=== PATIENT | male | born 1960 | race Caucasian/White ===

== ENCOUNTER 2018-08-17 06:13 | Day surgery (SDC) | payer BC, SELFPAY ==
[2018-08-17] VITALS (8 sets, daily range): BP systolic 95–135; BP diastolic 56–84; PULSE 58–77; RESP 14–21; TEMP 35.2–36.7; O2SAT 95–97
[2018-08-17] MEDS: Lactated Ringers 1,000 ML 80 ML IV ×2 (06:25→10:33)
--- NOTE | 2018-08-17 06:59 | W.PM.HP.N ---
Date of service: 08/17/18 Time of Service: 06:59 Assessment and Plan (1) Bilateral inguinal hernia: Current visit: No Status: Acute A\\ Bilateral inguinal hernias. Left > right P\\ Bilateral laparoscopic inguinal hernia repairs with mesh Risks, benefits and complications have been reviewed. Complications include but are not limited to bleeding, infection, injury to vas, vessels and nerves, injury to bowel and adverse reaction to medications. Questions were entertained and answered to their satisfaction and they wished to proceed. Qualifiers: Obstruction and gangrene presence: without obstruction or gangrene Recurrence: non-recurrent Qualified Code(s): K40.20 - Bilateral inguinal hernia, without obstruction or gangrene, not specified as recurrent History of Present Illness Narrative: Mr. Gomez is a pleasant 58-year-old gentleman who is back in the office because in the spring time he felt some gurgling in the left inguinal area. He did not want to have surgery done in the summer as he likes to ride his motorcycle. Over time he noted the hernia grew in size from pea-sized to more golf sized. He now has to push it in for 5 times a day. He denies any changes in his bowel habits. He denies any nausea or vomiting. He is an otherwise healthy gentleman. He just had his heart checked out because his younger brother ended up needing a triple-vessel bypass. He tells me that his workup was negative for any disease. He is quite active and has never had any chest pain. Review of Systems Constitutional Denies fever(s) Cardiovascular Denies chest pain, Denies chest pain at rest, Denies rapid heart rate, Denies irregular heart rhythm, Denies dyspnea and Denies dyspnea on exertion Respiratory Denies dyspnea and Denies dyspnea on exertion [facility] Medical History Bilateral inguinal hernia (Acute) Hyperlipidemia (Chronic) Diverticulosis (Acute) Obesity (Chronic) Irritability (Chronic) Exertional dyspnea (Chronic) Intermittent palpitations (Chronic) PVCs (premature ventricular contractions) (Chronic) Corneal abrasion (Acute) Asthma Surgical History Colonoscopy - MAC (04/19/16) Shoulder Manipulation (06/19/13) Family History Brother Heart disease Father Heart disease Social History Smoking/Tobacco Use Status: Former Tobacco Use Meds Home Medications Medication Instructions Recorded Confirmed Type acetaminophen [Tylenol] 325 mg PO Q4H PRN #2 tab-cap 05/30/13 08/17/18 History ibuprofen 200 mg PO Q6H PRN #2 tab-cap 05/30/13 08/17/18 History ProAir HFA 2 puff INHALATION PRN PRN 06/12/13 08/15/18 History simvastatin 40 mg tablet 40 mg PO QPM 07/04/18 08/15/18 History [id number]-zuz-[id number]-vit K-lycop 1 tab PO DAILY 08/15/18 08/15/18 History [Men's Multivitamin] Allergies Allergy/AdvReac Type Severity Reaction Status Date / Time No Known Drug Allergies Allergy Unverified 08/17/18 06:22 Exam Resp Effort & Inspection: normal respiratory effort Auscultation: clear to auscultation bilaterally Cardio Rate: regular rate Rhythm: regular rhythm Heart Sounds: no gallops, no murmurs and no rubs GI Inspection: normal to inspection Palpation: soft and hernia (bilateral inguinal hernias) Auscultation: normal bowel sounds Results Last Vital Signs Temp 95.4 F L 08/17/18 06:36 Pulse 63 08/17/18 06:36 Resp 16 08/17/18 06:36 BP 128/76 08/17/18 06:36 Pulse Ox 97 08/17/18 06:36
--- NOTE | 2018-08-17 07:02 | W.PM.DSUDISC ---
Discharge Plan Disposition Patient Disposition: HOME Condition: Good Discharge Details Reason For Visit: Bilateral inguinal hernias Attending Provider: Cathie Aguirre Primary Care Provider: Radha Daley Home Meds and New Rx's Prescriptions: New oxycodone 5 mg tablet 5 mg PO Q6H PRN (Reason: pain) Qty: 14 RF: 0 Continued simvastatin 40 mg tablet 40 mg PO QPM RF: 0 ProAir HFA 200 PUFF HFA aerosol inhaler 2 puff Inhalation PRN PRNRF: 0 Men's Multivitamin 400-20-300 mcg Tablet 1 tab PO DAILY RF: 0 Changed acetaminophen [Tylenol] 325 MG tablet 650 mg PO Q6H PRN PRNQty: 2 RF: 0 ibuprofen 200 MG tablet 600 mg PO Q6H PRN Qty: 2 RF: 0 Discharge Instructions Instructions: Laparoscopic Herniorrhaphy (DC), Inguinal Hernia Repair (DC) Additional Instructions: Activity at Home after surgery: 1. Make sure you walk outside at least 4 times per day 2. You should be able to climb a flight of stairs 3. No driving while in pain or taking pain medications 4. No strenuous activity or heavy lifting for 4 weeks (open surgery) Diet, Nutrition, & wound healin. Avoid alcohol until after you are recovered from your surgery 2. Make sure to eat plenty of lean protein (meat, fish, eggs, cottage cheese, beans) 3. Eat a variety of fruits and vegetables. Eat plenty of high fiber foods to avoid constipation. 4. Drink plenty of liquids to stay hydrated and avoid constipation Pain Medications: 1. Alternate Tylenol 650 mg and Ibuprofen 600 mg every 3 hours 2. If a narcotic has been prescribed take as directed only for breakthrough pain For Constipation: 1. Take Milk of Magnesia or MiraLax as needed for constipation Other: 1. You may shower daily. Do not scrub the incisions 2. Do not soak the incisions for 1 week 3. You may alternate ice and heat as needed for pain and swelling Wound Care: 1. Keep the incisions clean and dry Please call our office if you develop: 1. Fevers >101.5 2. Nausea or Vomiting 3. Worsening pain 4. Redness and thick discharge from the wounds If after hours please call the Hospital at and ask to speak to the on-call surgeon Referrals: Cathie Aguirre MD [ [facility] STAFF PHYSICIAN] - (2 weeks with wi or Deidre) Activity:: no lifting >20 lb x 4 weeks Diet:: As Tolerated Discharge Orders Discharge Orders: Discharge Order (Routine); Ordered 08/17/18 Ordered By: Cathie Aguirre DS: Diagnosis Discharge Diagnosis (1) Bilateral inguinal hernia: Status: Acute
[2018-08-17] MEDS: Bupivacaine LIPOSOME/PF 133 MG/10 ML VIAL IJ ×2 (07:38→09:56)
[2018-08-17] MEDS: Bupivacaine 0.25% Pres-Free 10 ML VIAL (07:38)
[2018-08-17] MEDS: Bupivacaine 0.25% Pres-Free 30 ML VIAL ×2 (07:38→09:56)
[2018-08-17] MEDS: Ketorolac 15 MG/ML VIAL IVP (10:20)
[2018-08-17] MEDS: oxyCODONE 5 MG TAB PO (12:13)
--- NOTE | 2018-08-17 13:29 | ROE_ITS ---
Date of service: 08/17/18 Time of Service: 07:30 Operative Note DATE OF PROCEDURE: 08/17/18 PRE-OP DIAGNOSIS: Bilateral inguinal hernia POST-OP DIAGNOSIS: same PROCEDURE: Attempted laparoscopic repair Open inguinal hernia repairs with mesh SURGEON: Cathie Aguirre ASSISTING SURGEON: Pearl Borjas PROMOTIONAL MARKETING AGENT: Pearl Borjas ANESTHESIA: GETA (Dion Leroy, ANALYSIS MANAGER/ ASA 2), regional (bilateral TAP block) and local ESTIMATED BLOOD LOSS: 15 PATHOLOGY: none sent COMPLICATIONS: None Patient was transported to: PACU Patient's condition: stable Implants: Left- Plug Marlex Prefix Large Right- Bard flat mesh 3 x 6 inches Indications: Mr. Gomez is a pleasant 58-year-old gentleman who was on the office with a large left inguinal hernia. It was starting to cause him pain especially when he was active. On exam he was also found to have a right inguinal hernia. Laparoscopic repair with possible open repair were discussed with him and he wished to proceed. Findings: On the left side there was a large direct and large indirect hernia. The hernia sac went down into the scrotum. On the right side there was a medium sized indirect hernia. Procedure Description: After informed consent was obtained Mr. Gomez was taken to the operating room and placed in a supine position. He was placed under general anesthesia and intubated. A timeout was done for the bilateral block. Dion Talley then did a bilateral nerve block under ultrasound guidance please see separate report. Next a Rebollar catheter was placed in a standard surgical fashion. His abdomen was clipped and prepped and draped with us in a sterile surgical fashion with ChloraPrep. A small 2 cm incision was then made just below the umbilicus dissection was taken down with cautery through the subcutaneous fat down to the fascia. The fascia was grasped with Kocker's and incised with scissors. Using my finger I swept under the rectus muscle to open up the preperitoneal space. The balloon dissector was then introduced and balloon was inflated. The dissecting balloon was removed and the secondary balloon was inflated to keep the port in place. The abdomen was then insufflated. The camera was placed and the secondary balloon did not seem inflated so more air was pushed into the balloon to try to inflate up more. The balloon kept obscuring the view. Another 5 mm port was placed just above the pubic symphysis. I then tried to place another 5 mm port in the midline. I still could not get good visualization of the pubic symphysis so the midline 5 mm port was moved just to the left of midline to see if I could get better vis ualization on of my instrument. I still could not get good visualization and at this point decided to convert to open. Ports were removed and the preperitoneal space was deflated. A 4 cm incision was then made in the left inguinal area. Cautery was used to get through the subcutaneous tissue down to the external oblique fascia. The external ring was identified and the fascia was opened from the external ring up. The edges of the cut external oblique fascia were grasped with hemostats. The vas and its vessels were identified and a [place] drain was placed around the vas. The cremasteric muscle was dissected away from the vas and its vasculature using blunt dissection as well as cautery. A large hernia sac was then identified which was attached to the vas and its vasculature down in the scrotum. The testicle had to be pulled up into the surgical field in order to be able to dissect the hernia sac away from the testicle. Once the hernia sac was dissected the testicle was gently placed back into the scrotum. The hernia sac was opened and omentum was noted within it. The omentum was returned back into the peritoneum and the hernia sac was amputated and suture ligated just above the peritoneum. The stump was placed into the peritoneum. Preperitoneal fat was then also identified coming through the internal ring. Most of the fat was amputated with cautery and the rest was placed back into the preperitoneal space. A large plug Marlex prefix mesh was then placed onto the surgical field. The plug was placed into the internal ring and secured with 2-0 Prolene. The large flat mesh was then attached to the conjoined tendon and then medially and laterally with a 2-0 Prolene. The tails of the mesh were placed under the external oblique fascia. The wound was then irrigated with some normal saline and dried. There external oblique fascia was reapproximated using 2-0 Vicryl. 20 cc of Exparel mixed with bupivacaine 0.25% was then injected into the external oblique fascia and subcutaneous tissue and dermis. The skin was closed with a running 4-0 Vicryl suture. Next a 4 cm incision was made in the right inguinal area. Cautery was used to get through the subcutaneous tissue down to the external oblique fascia. The external ring was identified and the fascia was opened from the external ring up. The edges of the cut external oblique fascia were grasped with hemostats. The vas and its vessels were identified and a [place] drain was placed around the vas and its vessels. The cremasteric muscle was dissected away from the vas and its vasculature using blunt dissection as well as cautery. A medium sized hernia sac was then identified running along the vas and its vasculature. The hernia sac was dissected away from the vas and reduced back into the peritoneum. A cord lipoma was then identified as well and this was dissected away from the cord structures using cautery. The internal ring was noted to be slightly enlarged but not as much as on the left side. A flat 3 x 6 Bard mesh was then cut to size and attached to the conjoined tendon with 2-0 Prolene. The mesh was attached laterally and medially with a 2-0 Prolene running suture all the way up past the cord structures. The internal ring was re-created with the mesh. The extra tail of the mesh was then placed underneath the external oblique fascia. The area was irrigated with saline. 20 cc of Exparel mixed with bupivacaine 0.25% was then injected into the external oblique fascia and subcutaneous tissue and dermis. The external oblique fascia was reapproximated using 2-0 Vicryl. The subcutaneous tissue was reapproximated using 3-0 Vicryl. The dermis was reapproximated using a running 4-0 Vicryl suture. The 4 small incisions from the laparoscopic portion were also closed with 4-0 Vicryl. The fascia at the larger umbilical incision was closed with 0 Vicryl UR 6 [id number] suture. Skin was cleaned and dried and skin affix was applied to all incisions. The drapes were removed and the testicles were palpated and they were both within the scrotum. The Rebollar was removed and the patient was woken up, extubated and taken back to PACU in stable condition. Sponge, instrument, needle counts were correct at the end of the case x2.
== END 2018-08-17 13:20 | disposition home or self-care (01) ==
PROVIDERS: PCP Nurse Practitioner; Visit Provider Surgery
PROC: (CPT 49650; principal; 2018-08-17 07:30)
DX: K40.20 Bilateral inguinal hernia, without obstruction or gangrene, not specified as recurrent (principal); Z53.31 Laparoscopic surgical procedure converted to open procedure
CPT/HCPCS: 49505; 76942; NC; C1781; J0690; J1100; J1885; J2405

== ENCOUNTER 2018-10-26 08:32 | Outpatient (REF) | payer BC, SELFPAY ==
[2018-10-26 13:36] LABS: Glucose 105 mg/dL (70-100)
[2018-10-27 09:49] LABS: PSA, Screening 1.5 ng/ml (0-3.5)
== END 2018-10-26 08:52 ==
LOC: NCHCN 08:32
PROVIDERS: PCP Nurse Practitioner; Visit Provider Nurse Practitioner
DX: Z00.00 Encounter for general adult medical examination without abnormal findings (principal); R45.4 Irritability and anger; Z12.5 Encounter for screening for malignant neoplasm of prostate
CPT/HCPCS: 82947; 84153

== ENCOUNTER 2018-10-27 13:04 | Outpatient (REF) | payer BC, SELFPAY ==
[2018-10-31 16:35] LABS: Testosterone, Free 8.71 ng/dL (3.87-14.7); Testosterone, Total 396 ng/dL (240-950)
== END 2018-10-27 13:24 ==
LOC: NCHCN 13:04
PROVIDERS: PCP Nurse Practitioner; Visit Provider Nurse Practitioner
DX: N52.9 Male erectile dysfunction, unspecified (principal)
CPT/HCPCS: 84402; 84403